=== PATIENT | female | born 1940 | race African-American/Black ===

== ENCOUNTER 2019-01-26 20:35 | Emergency (ER) | payer OTHER ==
[~2019-01-26] VITALS: Ht 167.6 cm; Wt 84.0 kg
[2019-01-26] MEDS ORDERED: CEFTRIAXONE 1 G PREMIX 50 ML IV ONE (21:15)
[2019-01-26] MEDS ORDERED: SODIUM CHLORIDE 0.9% 1000ML BAG (SEPSIS BOLUS) IV ONE (21:15)
[2019-01-26 22:07] LABS: BASOPHILS % 0.3 % (0.0-2.0); HEMATOCRIT. 34.2 % (36.0-48.0); HEMOGLOBIN. 10.6 g/dL (12.0-16.0); LYMPHOCYTES % 7.2 % (20.0-50.0); MEAN CORPUSCULAR HEMOGLOBIN 27.3 pg (28.0-32.0); MEAN CORPUSCULAR VOLUME 87.8 fL (81.0-99.0); MONOCYTES % 8.1 % (2.0-8.0); NEUTROPHILS % 84.4 % (40.0-76.0); PLATELET 147 x1000/uL (130-400); RED CELL DISTRIBUTION WIDTH 14.1 % (11.6-14.6)
[2019-01-26 22:12] LABS: INR 1.3; PROTHROMBIN TIME 13.1 sec (9.6-11.0)
[2019-01-26 22:13] LABS: CHLORIDE 108 mEq/L (98-107)
[2019-01-26 22:17] LABS: CLARITY URINE TURBID (CLEAR); COLOR URINE DARK YELLOW (YELLOW); KETONES URINE TRACE (NEGATIVE); LEUKOCYTE ESTERASE URINE 3+ (NEGATIVE); NITRITE URINE POSITIVE (NEGATIVE); OCCULT BLOOD URINE 2+ (NEGATIVE); PROTEIN URINE 1+ (NEGATIVE); SPECIFIC GRAVITY URINE 1.017 (1.005-1.030)
[2019-01-26] MEDS ORDERED: PIPERACILLIN/TAZ 3.375G PREMIX 50 ML IV ONE (22:30)
[2019-01-26] MEDS ORDERED: VANCOMYCIN 1 G PREMIX 200 ML IV ONE (22:30)
[2019-01-26] MEDS ORDERED: ACETAMINOPHEN 500MG TABLET PO ONE (23:15)
[2019-01-27 02:14] VITALS: BP 123/51
== END 2019-01-27 02:18 | disposition short-term general hospital (02) ==
LOC: ER 20:35
DX: R65.20 Severe sepsis without septic shock (principal); G93.49 Other encephalopathy; N12 Tubulo-interstitial nephritis, not specified as acute or chronic; E11.9 Type 2 diabetes mellitus without complications; I10 Essential (primary) hypertension
CPT/HCPCS: 36415; 71045; 80053; 81003; 82962; 83605; 83690; 84145; 84484; 85025; 85610; 87040; 87077; 87086; 87186; 87804; 93005; 96365; 96367; 99291; J0696; J2543; J3370; J7030; J7040

== ENCOUNTER 2024-05-01 23:01 | Emergency (ER) | payer OTHER ==
[~2024-05-01] VITALS: Ht 167.6 cm; Wt 100.0 kg
[2024-05-01 23:05] VITALS: BP 0/0; PULSE 0; RESP 18; TEMP 36.78072; O2SAT 77; O2SAT 90
[2024-05-01] MEDS ORDERED: DEXTROSE 50% WATER 50ML SYRINGE IV ONE (23:12)
[2024-05-02] MEDS ORDERED: HYDR-4001 MT (01:14)
== END 2024-05-01 23:17 ==
LOC: ER 23:01
DX: I46.9 Cardiac arrest, cause unspecified (principal); E11.9 Type 2 diabetes mellitus without complications; I10 Essential (primary) hypertension; I21.3 ST elevation (STEMI) myocardial infarction of unspecified site; J45.909 Unspecified asthma, uncomplicated
CPT/HCPCS: 31500; 92950; 99285